=== PATIENT | male | born 1945 | race American Indian/Alaskan Native ===

== ENCOUNTER 2020-09-06 08:31 | Emergency (ER) | payer OTHER, MEDICARE ==
--- NOTE | 2020-09-06 09:58 | Emergency Department Report ---
HPI - General Chief Complaint: Altered Mental Status Time Seen by Provider: 09/06/20 09:07 - HPI HPI: This is a 75-year-old -[place]ong[place] male who presents to the emergency department via EMS and PD after he was found wandering on the streets after nancy ving his shelter facility last night. The patient has a history of dementia and has been seen recently in other emergency departments for similar issues regarding his dementia and behavioral disturbance. Apparently the patient was diagnosed in March with dementia and was admitted to [facility] for 5 days. He was taken to a personal retirement but only lasted 4 days due to his aggression, before his brother had to come and get him. It is unknown how long this patient has been at this particular shelter facility. The brother, who is power of contracts attorney, wants to try and get him placed in a different facility for memory care. The patient himself is AAO x1 to person, but not place or time. He is not very cooperative and is a poor historian. ED Past Medical Hx - Past Medical History Previous Medical History?: Yes Hx Dementia: Yes - Social History Smoking Status: Unknown if ever smoked ED Review of Systems ROS: Stated complaint: AMS Other details as noted in HPI Comment: Unobtainable due to pts medical conditions Physical Exam - Physical Exam Vital Signs: Vital Signs 09/06/20 09/06/20 08:53 09:36 Temperature 98.3 F 98.3 F Pulse Rate 82 82 Respiratory 18 18 Rate Blood Pressure 160/82 Blood Pressure 160/82 162/72 [Left] O2 Sat by Pulse 98 98 Oximetry Physical Exam: GENERAL: The patient is well-developed well-nourished. HENT: Normocephalic. Atraumatic. Patient has moist mucous membranes. EYES: Extraocular motions are intact. NECK: Supple. Trachea is midline. CHEST/LUNGS: Clear to auscultation. There is no respiratory distress noted. HEART/CARDIOVASCULAR: Regular. There is no tachycardia. There is no murmur. ABDOMEN: Abdomen is soft, nontender. Patient has normal bowel sounds. There is no abdominal distention. SKIN: Skin is warm and dry. NEURO: The patient is awake but confused. AAO x1 to person. No slurred speech. Cranial nerves II through XII grossly intact. MUSCULOSKELETAL: There is no tenderness or deformity. ED Course Vital Signs 09/06/20 09/06/20 08:53 09:36 Temperature 98.3 F 98.3 F Pulse Rate 82 82 Respiratory 18 18 Rate Blood Pressure 160/82 Blood Pressure 160/82 162/72 [Left] O2 Sat by Pulse 98 98 Oximetry - Reevaluation(s) Reevaluation #1: 09/06/20 11:51 I spoke with the patient's brother, Nakul Richards. He says that this patient has only been at this most recent personal retirement, not a shelter, for a few days. He walked out of the personal retirement to a neighbor's house and was sitting in their car. The neighbor approached the personal retirement to let them know that this patient was on his property which is what prompted the EMS/911 call. This is the second personal retirement that the patient has been in in the past week. The patient was kicked out of the first 1 due to behavioral issues. He was seen at one of the [facility] before being sent to this personal retirement. His current personal retirement is called [facility] retirement. The phone number is [phone]. The address is [address] Reevaluation #3: 09/06/20 15:39 Lab Results 09/06/20 09/06/20 09/06/20 Range/Units 09:49 10:07 10:07 WBC 6.6 (4.5-11.0) K/mm3 RBC 4.65 (3.65-5.03) M/mm3 Hgb 13.8 (11.8-15.2) gm/dl Hct 40.9 (35.5-45.6) % MCV 88 (84-94) fl MCH 30 (28-32) pg MCHC 34 (32-34) % RDW 14.5 (13.2-15.2) % Plt Count 206 (140-440) K/mm3 Lymph % (Auto) 14.1 (13.4-35.0) % Carson % (Auto) 6.4 (0.0-7.3) % Eos % (Auto) 2.5 (0.0-4.3) % Baso % (Auto) 1.4 (0.0-1.8) % Lymph # (Auto) 0.9 L (1.2-5.4) K/mm3 Carson # (Auto) 0.4 (0.0-0.8) K/mm3 Eos # (Auto) 0.2 (0.0-0.4) K/mm3 Baso # (Auto) 0.1 (0.0-0.1) K/mm3 Seg Neutrophils % 75.6 H (40.0-70.0) % Seg Neutrophils # 5.0 (1.8-7.7) K/mm3 Sodium 140 (137-145) mmol/L Potassium 3.9 (3.6-5.0) mmol/L Chloride 100.4 (98-107) mmol/L Carbon Dioxide 32 H (22-30) mmol/L Anion Gap 12 mmol/L BUN 16 (9-20) mg/dL Creatinine 0.7 L (0.8-1.3) mg/dL Estimated GFR > 60 ml/min BUN/Creatinine Ratio 23 % Glucose 89 (75-100) mg/dL POC Glucose 76 (70-105) mg/dL Calcium 9.9 (8.4-10.2) mg/dL Total Bilirubin 0.40 (0.1-1.2) mg/dL AST 20 (5-40) units/L ALT 18 (7-56) units/L Alkaline Phosphatase 67 (35-129) units/L Total Protein 8.2 (6.3-8.2) g/dL Albumin 4.4 (3.9-5) g/dL Albumin/Globulin Ratio 1.2 % Plasma/Serum Alcohol (0-0.07) % 09/06/20 Range/Units 10:07 WBC (4.5-11.0) K/mm3 RBC (3.65-5.03) M/mm3 Hgb (11.8-15.2) gm/dl Hct (35.5-45.6) % MCV (84-94) fl MCH (28-32) pg MCHC (32-34) % RDW (13.2-15.2) % Plt Count (140-440) K/mm3 Lymph % (Auto) (13.4-35.0) % Carson % (Auto) (0.0-7.3) % Eos % (Auto) (0.0-4.3) % Baso % (Auto) (0.0-1.8) % Lymph # (Auto) (1.2-5.4) K/mm3 Carson # (Auto) (0.0-0.8) K/mm3 Eos # (Auto) (0.0-0.4) K/mm3 Baso # (Auto) (0.0-0.1) K/mm3 Seg Neutrophils % (40.0-70.0) % Seg Neutrophils # (1.8-7.7) K/mm3 Sodium (137-145) mmol/L Potassium (3.6-5.0) mmol/L Chloride (98-107) mmol/L Carbon Dioxide (22-30) mmol/L Anion Gap mmol/L BUN (9-20) mg/dL Creatinine (0.8-1.3) mg/dL Estimated GFR ml/min BUN/Creatinine Ratio % Glucose (75-100) mg/dL POC Glucose (70-105) mg/dL Calcium (8.4-10.2) mg/dL Total Bilirubin (0.1-1.2) mg/dL AST (5-40) units/L ALT (7-56) units/L Alkaline Phosphatase (35-129) units/L Total Protein (6.3-8.2) g/dL Albumin (3.9-5) g/dL Albumin/Globulin Ratio % Plasma/Serum Alcohol < 0.01 (0-0.07) % - Consultations Consultation #1: 09/06/20 11:43 I spoke to the [facility] management hub and one of the physicians there regarding this patient's presentation to our emergency department. They are aware of the patient eloped from his shelter facility last night and that he is in need of placement, preferably to a location that deals with dementia, Alzheimer's, and has memory care units. They have asked for the patient to be seen by the mental health assessment team here. If they are deemed in need of inpatient stabilization, we have permission to admit this patient for that. If they do not require a 1013 or inpatient stabilization, [facility] will arrange for an outpatient appointment for this patient and assist in further placement. ED Medical Decision Making - Lab Data Result diagrams: 09/06/20 10:07 09/06/20 10:07 - EKG Data -: EKG Interpreted by Me EKG shows normal: sinus rhythm, axis, intervals, QRS complexes, ST-T waves Rate: normal - EKG Data When compared to previous EKG there are: previous EKG unavailable Interpretation: normal EKG - Radiology Data Radiology results: report reviewed CT BRAIN: 09/06/2020 INDICATION / CLINICAL INFORMATION: Altered mental status. COMPARISON: 04/20/2020 FINDINGS: BRAIN/INTRACRANIAL STRUCTURES: Unenhanced CT images of the brain demonstrate no evidence of acute intracranial abnormality. Ventricles and sulci are prominent in size, consistent with diffuse cerebral atrophy. There is no CT evidence of acute ischemic injury, hemorrhage, or mass. Moderate chronic white matter hypoattenuation is present. EXTRACRANIAL STRUCTURES: Unremarkable. IMPRESSION: No acute abnormality. Chronic and age- related changes. No change when compared to 04/20/2020. - Medical Decision Making This patient was brought in after he wandered away from his personal retirement. He does have a history of dementia. At the time of my examination the patient is AAO x1 to person, but not place or time. He does not have any obvious lateralizing or focal deficits. No slurred speech. Cranial nerves are intact. CT scan of the head without contrast does not show any bleed, shift, mass, ischemia, or any other acute process. The patient's labs have thus far been unremarkable including CBC, metabolic panel and blood alcohol level. We do not yet have a urine sample for urinalysis or UDS but the patient does not appear acutely intoxicated and his behavior is more consistent with his dementia. I spoke to the patient's brother, who is also his power of contracts attorney, and he would like the patient placed in a shelter facility, especially one that could handle his dementia and behavioral issues. I spoke to [facility] who says that they will attempt to assist in a shelter placement but that it would be done as an outpatient appointment. They did ask for the patient to be seen by the mental health assessment team. The patient was seen by case management here who contacted the personal retirement and says that they are not capable of taking care of this patient and he is not welcome back. Attempts have been made by our case management team, as well as the psychiatric aniline press worker, to speak with the patient's brother unsuccessfully. Critical Care Time: No Critical care attestation.: If time is entered above; I have spent that time in minutes in the direct care of this critically ill patient, excluding procedure time. ED Disposition Clinical Impression: Dementia Qualifiers: Dementia type: unspecified type Dementia behavioral disturbance: with behavioral disturbance Qualified Code(s): F03.91 - Unspecified dementia with behavioral disturbance Hypertension Qualifiers: Hypertension type: essential hypertension Qualified Code(s): I10 - Essential (primary) hypertension Disposition: - TO HOME OR SELFCARE Is pt being admited?: No Condition: Stable Instructions: Hypertension (ED) Additional Instructions: Professional and Agency Contacts To help [facility](21/04) [place] Crisis Line: Suicide Prevention Line: Crisis Text Line: Text START to 125846 Emergency: 911 Outpatient COMMUNITY Behavioral Health Resources: ELEANOR: [facility] [address], [place] [address] [place]: [facility] - [address] [place] [address] Friday thru Friday - 8am - 5pm [place]: [facility] Address: [address] [place] [address] Friday thru Friday- 7am-2pm [facility] Address: [address] [place] [address] Friday thru Friday: 8:30AM-5PM Time of Disposition: 15:44
[2020-09-06 10:41] LABS: Basophils # (Auto) 0.1 K/mm3 (0.0-0.1); Basophils % (Auto) 1.4 % (0.0-1.8); Eosinophils # (Auto) 0.2 K/mm3 (0.0-0.4); Eosinophils % (Auto) 2.5 % (0.0-4.3); Hematocrit 40.9 % (35.5-45.6); Hemoglobin 13.8 gm/dl (11.8-15.2); Lymphocytes # (Auto) 0.9 K/mm3 (1.2-5.4); Lymphocytes % (Auto) 14.1 % (13.4-35.0); Mean Corpuscular HGB Conc 34 % (32-34); Mean Corpuscular Volume 88 fl (84-94); Monocytes # (Auto) 0.4 K/mm3 (0.0-0.8); Monocytes % (Auto) 6.4 % (0.0-7.3); Platelet Count 206 K/mm3 (140-440); Red Blood Count 4.65 M/mm3 (3.65-5.03); Red Cell Distribution Width 14.5 % (13.2-15.2)
[2020-09-06 11:03] LABS: Alanine Aminotransferase 18 units/L (7-56); Albumin 4.4 g/dL (3.9-5); Blood Urea Nitrogen 16 mg/dL (9-20); Calcium 9.9 mg/dL (8.4-10.2); Hemolysis Index 5
[2020-09-06 11:04] LABS: BUN/Creatinine Ratio 23
[2020-09-06] MEDS ORDERED: ZIPRASIDONE MESYLATE 20 MG VIAL IM ONE ×2 (11:05→12:00)
--- NOTE | 2020-09-06 11:11 | Cat Scan Report ---
CT BRAIN: 09/06/2020 INDICATION / CLINICAL INFORMATION: Altered mental status. COMPARISON: 04/20/2020 FINDINGS: BRAIN/INTRACRANIAL STRUCTURES: Unenhanced CT images of the brain demonstrate no evidence of acute int racranial abnormality. Ventricles and sulci are prominent in size, consistent with diffuse cerebral atrophy. There is no CT evidence of acute ischemic injury, hemorrhage, or mass. Moderate chronic white matter hypoattenuation is present. EXTRACRANIAL STRUCTURES: Unremarkable. IMPRESSION: No acute abnormality. Chronic and age-related changes. No change when compared to 04/20/2020. All CT scans at this location are performed using dose reduction to ALARA by means of automated expos ure control. Signer Name: Daron Baum MD Signed: 09/06/2020 11:06 AM Workstation Name: [email or web address]
[2020-09-06] MEDS ORDERED: WATER FOR INJ Sterile (PF) 10 ML ONE (11:57)
[2020-09-06 20:51] LABS: Bilirubin,Urine NEG (Negative); Blood,Urine NEG (Negative); Color,Urine Straw (Yellow); Protein,Urine <15 mg/dL mg/dL (Negative); RBC,Urine < 1.0 /HPF (0.0-6.0); Urobilinogen,Urine < 2.0 mg/dL (<2.0)
[2020-09-06 20:57] LABS: WBC,Urine < 1.0 /HPF (0.0-6.0)
[2020-09-06 21:07] LABS: Amphetamine Screen,Urine Negative; Benzodiazepines Screen,Urine Negative; Cannabinoid Screen,Urine Negative; Cocaine Screen,Urine Negative; Methadone Screen,Urine Negative; Opiate Screen,Urine Negative
--- NOTE | 2020-09-07 13:26 | XRay Report ---
CHEST 1 VIEW INDICATION: Rule out TB COMPARISON: None FINDINGS: Support devices: None Heart: Normal Lungs/Pleura: No acute pulmonary or pleural findings. Specifically, no radiographic evidence of tuber culosis. IMPRESSION: 1. No acute disease. Signer Name: Remberto Clemons MD Signed: 09/07/2020 1:21 PM Workstation Name: [id number]
[2020-09-09 07:58] VITALS: BP 131/76
== END 2020-09-09 14:59 | disposition home or self-care (01) ==
LOC: ED 08:31
DX: F03.91 Unspecified dementia, unspecified severity, with behavioral disturbance (principal); I10 Essential (primary) hypertension
CPT/HCPCS: 36415; 70450; 71045; 80053; 80307; 81001; 82962; 85025; 93005; 96372; 99285; J3486; U0003; 80320; G0480